=== PATIENT | female | born 1980 | race Hispanic/Latino ===

== ENCOUNTER 2017-07-20 00:02 | Emergency (ER) | payer OTHER ==
[2017-07-20] MEDS ORDERED: ACETAMINOPHEN EXTRA STRENGTH 500 MG TABLET ONE (00:21)
== END 2017-07-20 00:59 | disposition home or self-care (01) ==
LOC: EDH 00:02
DX: R68.84 Jaw pain (principal); Z88.8 Allergy status to other drugs, medicaments and biological substances

== ENCOUNTER 2018-06-15 10:15 | Inpatient (IN) | payer MEDICAID ==
[~2018-06-15] VITALS: Ht 149.9 cm; Wt 76.7 kg
[2018-06-15 18:11] LABS: BASOPHILS % (AUTO) 0.3 % (0.0-5.0); EOSINOPHILS % (AUTO) 0.7 % (0.0-8.0); HEMATOCRIT 36.4 % (36-48); LYMPHOCYTES % (AUTO) 15.1 % (21.0-51.0); MEAN CORPUSCULAR HEMOGLOBIN 27.5 pg (27.0-33.0); MEAN CORPUSCULAR HGB CONC 32.8 g/dL (32.0-36.0); MEAN CORPUSCULAR VOLUME 83.7 fL (79-99); MONOCYTES % (AUTO) 4.2 % (3.0-13.0); NEUTROPHILS % (AUTO) 79.7 % (40.0-77.0); PLATELET COUNT (AUTO) 321 K/uL (130-400); RED BLOOD CELL COUNT(AUTO) 4.34 MIL/uL (4.00-5.50); RED CELL DISTRIBUTION WIDTH 17.4 % (11.0-15.5); WHITE BLOOD COUNT (AUTO) 9.2 K/uL (4.8-10.8)
[2018-06-16] MEDS ORDERED: LACTATED RINGERS 1000ML 1,000 ML IV SCH (06:00)
[2018-06-16] MEDS ORDERED: CALDOLOR 800MG+NS 250ML 250 ML IV PRN (06:00)
[2018-06-16] MEDS ORDERED: CEFAZOLIN SODIUM 1 GM VIAL IVP PRN (06:00)
[2018-06-16 06:24] VITALS: BP 130/86
[2018-06-16] MEDS ORDERED: OXYTOCIN 10 USP UNITS/ML ONE (07:21)
[2018-06-16] MEDS ORDERED: CITRIC ACID/SODIUM CITRATE 30 ML UDCUP ONE (07:49)
[2018-06-16] MEDS ORDERED: DURAMORPH PF1 MG/ML 10ML AMP IV ONE (07:58)
[2018-06-16] MEDS ORDERED: FENTANYL CITRATE PF 50 MCG/1 ML 2ML VIAL ONE (07:58)
[2018-06-16] MEDS ORDERED: KETAMINE HCL 100 MG/ML 5ML VIAL IJ ONE (08:22)
[2018-06-16] MEDS ORDERED: ONDANSETRON HCL 4 MG/2 ML VIAL ONE (08:22)
[2018-06-16] MEDS ORDERED: MIDAZOLAM HCL 1 MG/ML 2ML VIAL ONE (08:55)
[2018-06-16] MEDS ORDERED: SODIUM CHLORIDE 0.9% 10 ML VIAL IVP PRN (10:00)
[2018-06-16] MEDS ORDERED: BISACODYL 10 MG SUPP.RECT RC PRN (10:00)
[2018-06-16] MEDS ORDERED: CEFAZOLIN 3GM /D5W 100ML 100 ML IV SCH (10:00)
[2018-06-16] MEDS ORDERED: DEXTROSE 5 %-0.45 % NACL 1,000 ML IV PRN (10:00)
[2018-06-16] MEDS ORDERED: DIPHENHYDRAMINE HCL 25 MG CAPSULE PO PRN (10:00)
[2018-06-16] MEDS ORDERED: ACETAMINOPHEN-CODEINE 300/30MG TAB PO PRN (10:00)
[2018-06-16] MEDS ORDERED: PROMETHAZINE HCL 25 MG/ML 1ML AMPULE IM PRN (10:45)
[2018-06-16] MEDS ORDERED: NALOXONE HCL 0.4 MG/1 ML ML IVP PRN ×2 (10:45)
[2018-06-16] MEDS ORDERED: ONDANSETRON HCL 4 MG/2 ML VIAL IVP PRN ×2 (10:45)
[2018-06-16] MEDS ORDERED: DiphenhydrAMINE HCL 50 MG/ML VIAL IVP PRN (10:45)
[2018-06-16] MEDS ORDERED: METOCLOPRAMIDE 10 MG/2 ML VIAL IVP PRN (10:45)
[2018-06-16] MEDS ORDERED: EPHEDRINE SULFATE 50 MG/ML AMPULE IVP PRN (10:45)
[2018-06-16] MEDS ORDERED: MORPHINE SULFATE 2 MG/ML 1ML SYG IVP PRN (10:45)
[2018-06-16] MEDS ORDERED: HYDROCODONE/ACETAMINOPHEN 5/325 MG TAB PO PRN ×2 (10:45)
[2018-06-16] MEDS ORDERED: ONDANSETRON HCL 4 MG/2 ML 8 MG in SODIUM CHLORIDE 0.9% 50 ML IVP NR (10:45)
[2018-06-16 11:40] VITALS: BP 116/78
[2018-06-16] MEDS: OXYTOCIN-LR 20 UNITS/1000 ML 1,000 ML IV PRN ×2 (12:14→19:37)
[2018-06-16 15:35] VITALS: BP 108/69
[2018-06-16] MEDS: CALDOLOR 800MG+NS 250ML 250 ML IV SCH (17:42)
[2018-06-16 19:28] VITALS: BP 114/73
[2018-06-16] MEDS: DOCUSATE SODIUM 100 MG CAP PO SCH (21:49)
[2018-06-16 23:32] VITALS: BP 107/64
[2018-06-17] MEDS ORDERED: COMPOUND IV REFRIGERATED 1 EACH MISC ONE (01:36)
[2018-06-17] MEDS ORDERED: CEFAZOLIN 3GM /D5W 100ML 100 ML IV SCH (02:00)
[2018-06-17] MEDS: CALDOLOR 800MG+NS 250ML 250 ML IV SCH (02:29)
[2018-06-17 03:51] VITALS: BP 100/59
[2018-06-17 06:37] LABS: HEMATOCRIT 29.4 % (36-48); MEAN CORPUSCULAR HEMOGLOBIN 27.6 pg (27.0-33.0); MEAN CORPUSCULAR HGB CONC 32.9 g/dL (32.0-36.0); PLATELET COUNT (AUTO) 239 K/uL (130-400); RED BLOOD CELL COUNT(AUTO) 3.51 MIL/uL (4.00-5.50); RED CELL DISTRIBUTION WIDTH 17.1 % (11.0-15.5); WHITE BLOOD COUNT (AUTO) 9.7 K/uL (4.8-10.8)
[2018-06-17 08:01] VITALS: BP 113/64
[2018-06-17 08:17] LABS: HEPATITIS Bs ANTIGEN SCREEN P Negative (Negative)
[2018-06-17] MEDS: DOCUSATE SODIUM 100 MG CAP PO SCH ×2 (09:24→20:47)
[2018-06-17] MEDS: IBUPROFEN 800 MG TAB PO SCH ×2 (09:26→16:57)
[2018-06-17] MEDS: DIPH,PERTUSS(ACELL),TET VAC/PF 0.5 ML VIAL IM SCH ×2 (10:00→16:40)
[2018-06-17] MEDS: MEASLES/MUMPS/RUBELLA VACCINE, LIVE 0.5 ML/VIAL SQ SCH ×2 (10:00→16:42)
[2018-06-17] MEDS: SIMETHICONE 80 MG TAB.CHEW PO PRN ×4 (10:05→20:47)
[2018-06-17 11:38] VITALS: BP 117/74
[2018-06-17 15:14] VITALS: BP 126/67
[2018-06-17 19:46] VITALS: BP 130/75
[2018-06-17 23:00] VITALS: BP 127/70
[2018-06-18] MEDS: IBUPROFEN 800 MG TAB PO SCH ×2 (02:15→09:31)
[2018-06-18 03:42] VITALS: BP 115/63
[2018-06-18 07:33] VITALS: BP 118/73
[2018-06-18] MEDS: DOCUSATE SODIUM 100 MG CAP PO SCH (09:30)
[2018-06-18] MEDS: SIMETHICONE 80 MG TAB.CHEW PO PRN (09:30)
[2018-06-18 11:21] VITALS: BP 106/70
== END 2018-06-18 13:45 | disposition home or self-care (01) | DRG 540 ==
LOC: EDSTATUS 10:15 → LDH 06-16 05:47 → WSH 06-16 11:40 → EDSTATUS 06-19 10:15
PROC: 0UB50ZZ Excision of Right Fallopian Tube, Open Approach (ICD-10-PCS; 2018-06-16)
PROC: 3E0234Z Introduction of Serum, Toxoid and Vaccine into Muscle, Percutaneous Approach (ICD-10-PCS; 2018-06-16)
PROC: 3E0234Z Introduction of Serum, Toxoid and Vaccine into Muscle, Percutaneous Approach (ICD-10-PCS; 2018-06-16)
PROC: 10D00Z1 Extraction of Products of Conception, Low, Open Approach (ICD-10-PCS; principal; 2018-06-16 08:00)
DX: O24.420 Gestational diabetes mellitus in childbirth, diet controlled (principal); N73.6 Female pelvic peritoneal adhesions (postinfective); O69.81X0 Labor and delivery complicated by cord around neck, without compression, not applicable or unspecified; O34.211 Maternal care for low transverse scar from previous cesarean delivery; Z30.2 Encounter for sterilization; Z37.0 Single live birth; Z3A.39 39 weeks gestation of pregnancy; Z90.79 Acquired absence of other genital organ(s); Z90.721 Acquired absence of ovaries, unilateral; Z23 Encounter for immunization
CPT/HCPCS: 36415; 59510; 82948; 85025; 85027; 86592; 86850; 86900; 86901; 87340; 90707; 90715; A4344; A4606; G0378; J0690; J1200; J1741; J2250; J2274; J2405; J2590; J3010; J3490; J7120

== ENCOUNTER 2018-12-22 17:42 | Emergency (ER) | payer MEDICAID, OTHER ==
[2018-12-22 18:39] LABS: BASOPHILS % (AUTO) 0.9 % (0.0-5.0); EOSINOPHILS % (AUTO) 1.6 % (0.0-8.0); HEMATOCRIT 38.8 % (36-48); LYMPHOCYTES % (AUTO) 24.6 % (21.0-51.0); MEAN CORPUSCULAR HEMOGLOBIN 27.1 pg (27.0-33.0); MEAN CORPUSCULAR HGB CONC 32.7 g/dL (32.0-36.0); MEAN CORPUSCULAR VOLUME 82.7 fL (79-99); MONOCYTES % (AUTO) 8.5 % (3.0-13.0); NEUTROPHILS % (AUTO) 64.4 % (40.0-77.0); PLATELET COUNT (AUTO) 443 K/uL (130-400); RED BLOOD CELL COUNT(AUTO) 4.69 MIL/uL (4.00-5.50); RED CELL DISTRIBUTION WIDTH 15.5 % (11.0-15.5); WHITE BLOOD COUNT (AUTO) 6.8 K/uL (4.8-10.8)
[2018-12-22 18:45] LABS: CREATININE 0.7 mg/dL (0.5-1.5); POTASSIUM 3.4 mmol/L (3.5-5.1)
[2018-12-22 18:48] LABS: APPEARANCE,URINE Cloudy (CLEAR); BILIRUBIN,URINE Negative (NEGATIVE); COLOR,URINE Yellow (YELLOW); GLUCOSE, URINE (UA) Negative (NEGATIVE); KETONES,URINE Negative (NEGATIVE); LEUKOCYTE ESTERASE ,URINE Moderate (NEGATIVE); NITRATE,URINE Negative (NEGATIVE); OCCULT BLOOD,URINE Large (NEGATIVE); PROTEIN,URINE Negative (NEGATIVE)
[2018-12-22 18:50] LABS: HCG,QUAL RESULT NEGATIVE (NEGATIVE)
[2018-12-22 18:53] LABS: ALBUMIN 3.5 g/dL (3.5-5.0); BILIRUBIN,TOTAL 0.5 mg/dL (0.2-1.0); TOTAL PROTEIN, SERUM 7.7 g/dL (6.0-8.3)
[2018-12-22 19:01] LABS: BACTERIA,URINE Moderate /HPF (None Seen)
[2018-12-22 19:02] LABS: MUCUS,URINE Few LPF (None Seen)
[2018-12-22] MEDS ORDERED: ONDANSETRON HCL 4 MG/2 ML VIAL ONE (19:54)
[2018-12-22] MEDS ORDERED: FAMOTIDINE/PF 20 MG/2 ML VIAL IV ONE (19:55)
[2018-12-22] MEDS ORDERED: CEFTRIAXONE SODIUM 1 GM ONE (19:55)
[2018-12-22] MEDS ORDERED: SODIUM CHLORIDE 0.9% 50 ML IV ONE (19:56)
== END 2018-12-22 20:50 | disposition home or self-care (01) ==
LOC: EDH 17:42
DX: N39.0 Urinary tract infection, site not specified (principal); R10.10 Upper abdominal pain, unspecified; R42 Dizziness and giddiness; Z88.1 Allergy status to other antibiotic agents; Z87.891 Personal history of nicotine dependence
CPT/HCPCS: 36415; 76705; 80053; 81001; 81025; 83690; 85025; 96374; 96375; 99285; J0696; J2405; J3490

== ENCOUNTER 2020-03-10 17:44 | Emergency (ER) | payer OTHER ==
[2020-03-10 19:18] LABS: BASOPHILS % (AUTO) 0.3 % (0.0-5.0); EOSINOPHILS % (AUTO) 2.1 % (0.0-8.0); HEMATOCRIT 37.3 % (36-48); LYMPHOCYTES % (AUTO) 24.3 % (21.0-51.0); MEAN CORPUSCULAR HEMOGLOBIN 28.8 pg (27.0-33.0); MEAN CORPUSCULAR HGB CONC 33.8 g/dL (32.0-36.0); MEAN CORPUSCULAR VOLUME 85.2 fL (79-99); MONOCYTES % (AUTO) 5.3 % (3.0-13.0); NEUTROPHILS % (AUTO) 67.4 % (40.0-77.0); PLATELET COUNT (AUTO) 423 K/uL (130-400); RED BLOOD CELL COUNT(AUTO) 4.38 MIL/uL (4.00-5.50); RED CELL DISTRIBUTION WIDTH 13.8 % (11.0-15.5); WHITE BLOOD COUNT (AUTO) 9.3 K/uL (4.8-10.8)
[2020-03-10 19:29] LABS: CREATININE 0.6 mg/dL (0.5-1.5); POTASSIUM 3.6 mmol/L (3.5-5.1)
[2020-03-10 19:34] LABS: ALBUMIN 3.1 g/dL (3.5-5.0); BILIRUBIN,TOTAL 0.5 mg/dL (0.2-1.0); TOTAL PROTEIN, SERUM 7.4 g/dL (6.0-8.3)
[2020-03-10] MEDS ORDERED: KETOROLAC TROMETHAMINE 30MG/ML ONE (19:35)
[2020-03-10 19:39] LABS: APPEARANCE,URINE Clear (CLEAR); BILIRUBIN,URINE Negative (NEGATIVE); COLOR,URINE Yellow (YELLOW); GLUCOSE, URINE (UA) Negative (NEGATIVE); KETONES,URINE Negative (NEGATIVE); LEUKOCYTE ESTERASE ,URINE Moderate (NEGATIVE); NITRATE,URINE Negative (NEGATIVE); OCCULT BLOOD,URINE Nonhemolyzed Trace (NEGATIVE); PH,URINE 6.5 (5.0-8.0); PROTEIN,URINE Negative (NEGATIVE); UROBILINOGEN,URINE 0.2 mg/dL (0.2-1.0)
[2020-03-10 19:43] LABS: HCG,QUAL RESULT NEGATIVE (NEGATIVE)
[2020-03-10 19:55] LABS: BACTERIA,URINE Rare /HPF (None Seen); SQUAMOUS EPITHELIAL CELL,UR Few /HPF (0-2)
[2020-03-10] MEDS ORDERED: IOHEXOL-350 75 ML VIAL IV ONE (20:04)
== END 2020-03-10 22:57 | disposition home or self-care (01) ==
LOC: EDH 17:44
DX: R10.32 Left lower quadrant pain (principal); Z88.1 Allergy status to other antibiotic agents
CPT/HCPCS: 36415; 74177; 80053; 81001; 81025; 83690; 85025; 87088; 96374; 99285; J1885; Q9967